=== PATIENT | male | born 1970 | race American Indian/Alaskan Native ===

== ENCOUNTER 2016-12-25 08:32 | Emergency (ER) | payer OTHER ==
[2016-12-25 09:30] LABS: Anion Gap 15 mmol/L; Blood Urea Nitrogen 12 mg/dL (9-20); Calcium 8.5 mg/dL (8.4-10.2); Carbon Dioxide 29 mmol/L (22-30); Glucose 123 mg/dL (75-100); Potassium 4.5 mmol/L (3.6-5.0); Sodium 140 mmol/L (137-145)
[2016-12-25 09:36] LABS: Basophils % (Auto) 0.5 % (0.0-1.8); Eosinophils % (Auto) 3.6 % (0.0-4.3); Hematocrit 44.7 % (35.5-45.6); Hemoglobin 14.8 gm/dl (11.8-15.2); Mean Corpuscular HGB Conc 33 % (32-34); Mean Corpuscular Hemoglobin 33 pg (28-32); Mean Corpuscular Volume 100 fl (84-94); Platelet Count 235 K/mm3 (140-440); Red Blood Count 4.47 M/mm3 (3.65-5.03); Red Cell Distribution Width 13.6 % (13.2-15.2); White Blood Count 7.7 K/mm3 (4.5-11.0)
--- NOTE | 2016-12-25 09:41 | XRay Report ---
Left knee 3 views: History: Knee pain, injury. Findings: Narrowing of the medial and patellofemoral compartment knee joint. Sclerotic adjacent articular surfaces with peripheral osteophytes suggesting degenerative changes. Degenerative changes also noted the lateral compartment. No fracture. No soft tissue calcification. Suspicion of fluid in the suprapatellar bursa. Impression: Degenerative changes. No acute fracture.
--- NOTE | 2016-12-25 09:42 | XRay Report ---
Left tibia fibula 2 views: History: Pain injury. Findings: No fracture, periosteal reaction or lytic lesion. Impression: No bony abnormality.
[2016-12-25 09:45] LABS: INR 1.09 (0.87-1.13)
[2016-12-25 09:47] LABS: Partial Thromboplastin Time 28.3 Sec. (24.2-36.6)
--- NOTE | 2016-12-25 10:30 | Emergency Department Report ---
ED General Adult HPI - General Chief complaint: Extremity Injury, Lower Stated complaint: SWOLLEN LEFT LEG Time Seen by Provider: 12/25/16 10:28 Source: patient, RN notes reviewed Mode of arrival: Ambulatory Limitations: No Limitations - History of Present Illness Initial comments: This is a 46-year-old male. He is previously unknown to me. His primary care doctor's Dr. Anderson. Past medical history includes obesity, DJD. The patient comes to the ER complaining of left lower extremity pain. He reports accidentally dropping an air conditioner on his left knee/distal lower extremity 2 weeks ago. He also reports that within the past few days, he is noted of pulsing feeling in his left lower extremity, and thinks his "veins" are swollen. There is no headache, neck pain, chest pain, abdominal pain or shortness of breath. There is no hematemesis or bright red blood per rectum, no history of intracranial hemorrhage. There is no weakness or numbness. There is no dorsal or plantar foot pain. He is able to ambulate with mild difficulty secondary to pain. no recent road trip greater than 4 hours, no recent surgeries, no recent hospital admissions, no personal history of DVT or pulmonary embolus that he is aware of. -: Gradual, week(s) Location: left, lower extremity Quality: aching Consistency: intermittent Improves with: movement, rest Associated Symptoms: denies other symptoms - Related Data Previous Rx's Medication Instructions Recorded Last Taken Type Ibuprofen [Motrin 800 MG tab] 800 mg PO Q8H #30 tablet 04/18/14 Unknown Rx oxyCODONE /ACETAMINOPHEN [Percocet 1 tab PO Q6HR PRN #12 tablet 04/18/14 Unknown Rx 5/325] Cyclobenzaprine HCl [Flexeril 5mg] 5 mg PO TID #30 tablet 12/02/14 Unknown Rx HYDROcodone/APAP 5-325 [[place] 1 each PO Q6HR PRN #20 tablet 12/02/14 Unknown Rx 5/325] Acetaminophen/Codeine [Tylenol 1 tab PO Q6H PRN #20 tab 12/25/16 Unknown Rx /Codeine # 3 tab] Apixaban [Eliquis] 5 mg PO BID #28 tablet 12/25/16 Unknown Rx Apixaban [Eliquis] 10 mg PO BID #14 tablet 07/14/17 Unknown Rx Allergies Allergy/AdvReac Type Severity Reaction Status Date / Time No Known Allergies Allergy Unverified 04/18/14 13:58 ED Review of Systems ROS: Stated complaint: SWOLLEN LEFT LEG Other details as noted in HPI Constitutional: denies: fever Eyes: denies: vision change ENT: denies: epistaxis Respiratory: denies: cough, shortness of breath Cardiovascular: denies: chest pain Gastrointestinal: denies: hematemesis, melena, hematochezia Musculoskeletal: arthralgia, myalgia Skin: rash Neurological: denies: as per HPI, weakness ED Past Medical Hx - Past Medical History Previous Medical History?: Yes Additional medical history: 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 - Surgical History Past Surgical History?: No - Social History Smoking Status: Never Smoker Substance Use Type: None - Medications Home Medications: Home Medications Medication Instructions Recorded Confirmed Last Taken Type Ibuprofen [Motrin 800 MG tab] 800 mg PO Q8H #30 tablet 04/18/14 Unknown Rx oxyCODONE /ACETAMINOPHEN [Percocet 1 tab PO Q6HR PRN #12 tablet 04/18/14 Unknown Rx 5/325] Cyclobenzaprine HCl [Flexeril 5mg] 5 mg PO TID #30 tablet 12/02/14 Unknown Rx HYDROcodone/APAP 5-325 [[place] 1 each PO Q6HR PRN #20 tablet 12/02/14 Unknown Rx 5/325] Acetaminophen/Codeine [Tylenol 1 tab PO Q6H PRN #20 tab 12/25/16 Unknown Rx /Codeine # 3 tab] Apixaban [Eliquis] 5 mg PO BID #28 tablet 12/25/16 Unknown Rx Apixaban [Eliquis] 10 mg PO BID #14 tablet 12/25/16 Unknown Rx ED Physical Exam - General Limitations: No Limitations General appearance: alert, in no apparent distress, obese - Head Head exam: Present: atraumatic, normocephalic - Eye Eye exam: Present: normal appearance, EOMI. Absent: nystagmus - ENT ENT exam: Present: normal exam, normal orophraynx, mucous membranes moist, normal external ear exam - Neck Neck exam: Present: normal inspection, full ROM. Absent: tenderness, meningismus - Respiratory Respiratory exam: Present: normal lung sounds bilaterally. Absent: respiratory distress, wheezes, rales, rhonchi, stridor, chest wall tenderness, accessory muscle use - Cardiovascular Cardiovascular Exam: Present: regular rate, normal rhythm, normal heart sounds. Absent: bradycardia, tachycardia, irregular rhythm, systolic murmur, diastolic murmur, rubs, gallop - GI/Abdominal GI/Abdominal exam: Present: soft, normal bowel sounds. Absent: distended, tenderness, guarding, rebound, rigid, pulsatile mass - Rectal Rectal exam: Present: deferred - Extremities Exam Extremities exam: Present: normal inspection, full ROM, normal capillary refill , calf tenderness, other (the bilateral lower extremities appear to have a mild component of lymphedema, although the patient is quite obese. There are 2+ pulses noted in the bilateral lower extremities. The compartments are soft. In the left lower extremity, the pelvis is stable, there is no long bony tenderness, and varicose veins are appreciated on the medial aspect of the left lower extremity.). Absent: tenderness, pedal edema, joint swelling - Back Exam Back exam: Present: normal inspection, full ROM. Absent: tenderness, CVA tenderness (R), CVA tenderness (L), muscle spasm, paraspinal tenderness, vertebral tenderness - Neurological Exam Neurological exam: Present: alert, oriented X3, normal gait (the patient walks with a very slight limp), other (Extraocular movements intact. Tongue midline. No facial droop. Facial sensation intact to light touch in the V1, V2, V3 distribution bilaterally. 5 and 5 strength in 4 extremities.. Sensation is intact to light touch in 4 extremities.). Absent: motor sensory deficit - Psychiatric Psychiatric exam: Present: normal affect, normal mood - Skin Skin exam: Present: warm, erythema. Absent: rash ED Course Vital Signs 12/25/16 12/25/16 08:43 11:35 Temperature 98.5 F Pulse Rate 79 78 Respiratory 20 20 Rate Blood Pressure 178/106 Blood Pressure 142/78 [Left] O2 Sat by Pulse 94 97 Oximetry ED Medical Decision Making - Lab Data Result diagrams: 12/25/16 09:03 12/25/16 09:03 Vital Signs 12/25/16 08:43 Temperature 98.5 F Pulse Rate 79 Respiratory 20 Rate Blood Pressure 178/106 O2 Sat by Pulse 94 Oximetry Lab Results 12/25/16 12/25/16 12/25/16 Range/Units 09:03 09:03 09:03 WBC 7.7 (4.5-11.0) K/mm3 RBC 4.47 (3.65-5.03) M/mm3 Hgb 14.8 (11.8-15.2) gm/dl Hct 44.7 (35.5-45.6) % MCV 100 H (84-94) fl MCH 33 H (28-32) pg MCHC 33 (32-34) % RDW 13.6 (13.2-15.2) % Plt Count 235 (140-440) K/mm3 Lymph % (Auto) 21.4 (13.4-35.0) % [place] % (Auto) 10.4 H (0.0-7.3) % Eos % (Auto) 3.6 (0.0-4.3) % Baso % (Auto) 0.5 (0.0-1.8) % Lymph # 1.6 (1.2-5.4) K/mm3 [place] # 0.8 (0.0-0.8) K/mm3 Eos # 0.3 (0.0-0.4) K/mm3 Baso # 0.0 (0.0-0.1) K/mm3 Seg Neutrophils % 64.1 (40.0-70.0) % Seg Neutrophils # 4.9 (1.8-7.7) K/mm3 PT 14.0 (12.2-14.9) Sec. INR 1.09 (0.87-1.13) APTT 28.3 (24.2-36.6) Sec. Sodium 140 (137-145) mmol/L Potassium 4.5 (3.6-5.0) mmol/L Chloride 101.0 (98-107) mmol/L Carbon Dioxide 29 (22-30) mmol/L Anion Gap 15 mmol/L BUN 12 (9-20) mg/dL Creatinine 1.0 (0.8-1.5) mg/dL Estimated GFR > 60 ml/min BUN/Creatinine Ratio 12.00 % Glucose 123 H (75-100) mg/dL Calcium 8.5 (8.4-10.2) mg/dL - Radiology Data Radiology results: report reviewed, image reviewed X-ray of the left knee is negative for fracture and dislocation. DJD is noted. X-ray of the tibia and fibula, left side, negative for fracture and dislocation. LIVE [facility] CATHERINE AGUILA JR Male : 1970 MedRec# [id number] 12/25/16 10:17 - Radiology Dept. Note by ZOFIA PRO [facility] Num: [id number] : 1970 Patient Age: 46 LLE VENOUS DUPLEX COMPLETED. VAS LAB PRELIMINARY REPORT;ACUTE SVT NOTED IN LT. GSV FROM [place]-FEM JUNC DOWN INTO PX/MD CALF. NO EVIDENCE OF DVT NOTED IN VESSELS/SEGMENTS EXAMINED. UNABLE TO IMAGE 3/4 THIGH SFV AND PX- CALF VESSELS DUE TO HABITUS/ SWELLING. PHYSICIANS REPORT TO FOLLOW...(RSK) Initialized on 12/25/16 10:17 - END OF NOTE - Medical Decision Making Differential diagnosis: Contusion, fracture, sprain, dislocation, deep venous thrombosis, superficial venous thrombosis Assessment and plan: 46-year-old male with mild blunt trauma 2 weeks ago, who is ambulatory, but superficial venous thrombosis that is abutting the deep system. He is afebrile, with reassuring vital signs, with no chest pain, shortness of breath. His compartments are soft. Case is discussed with the vascular surgery team power generation plant operator, Tommie Palacios, who has discussed the case with Dr. Liu, vascular surgery recommends follow-up with either outpatient hematology her primary care, and anticoagulation as per primary team. I have then discussed the case with the patient's primary care doctor, Dr. Anderson, who requested eliquis, and indicated he could see the patient on Wednesday as a follow-up. Extensive discussion had with the patient regarding the risks, benefits, alternatives of systemic anticoagulation, he denies contraindications to systemic anticoagulation, and understands that there is a small risk of severe hemorrhage/life-threatening bleeding. Through shared decision making, and given that vascular surgery recommends treatment of this SVT as a DVT, patient will be started on systemic anticoagulation, and he will be instructed to follow-up with his outpatient primary care doctor or sediment remediation consultant next week. Vascular surgery does not recommend repeat outpatient ultrasound. Critical care attestation.: If time is entered above; I have spent that time in minutes in the direct care of this critically ill patient, excluding procedure time. ED Disposition Clinical Impression: Left leg pain Disposition: DC-01 TO HOME OR SELFCARE Is pt being admited?: No Does the pt Need Aspirin: No Condition: Stable Instructions: Deep Venous Thrombosis (ED) Additional Instructions: Ultrasound of the left lower extremity demonstrated superficial venous thromboembolism/blood clot. This is very close to the deep system within the left leg, and will most likely become a deep venous thrombosis. DVTs are risks to break off and cause blood clots in the lung, which can be potentially dangerous and life threatening. Therefore, it is recommended to start the blood thinning medication as directed. Take blood thinner, eliquis, 10 mg twice daily for the next week, and then decreased to 5 mg twice daily. A three- week prescription has been given 2. Follow-up next week, within the next 3-5 days with either your primary care doctor or the listed child support specialist, Dr. Luna. Walk and weight bear as much as tolerated. Avoid consumption of alcohol, ibuprofen, Motrin, aspirin, Aleve, Naprosyn. Return to the ER right away with chest pain, shortness of breath, vomiting blood, defecating part, confusion, weakness, numbness, change in mental status. Prescriptions: Acetaminophen/Codeine [Tylenol /Codeine # 3 tab] 1 tab PO Q6H PRN #20 tab PRN Reason: Pain Apixaban [Eliquis] 10 mg PO BID #14 tablet Apixaban [Eliquis] 5 mg PO BID #28 tablet Referrals: PRIMARY CARE, [Primary Care Provider] - 3-5 Days FRANCIA ANDERSON MD [Staff Physician] - 3-5 Days JUAN CONTRERAS MD [Staff Physician] - 3-5 Days DENIS LUNA MD [Staff Physician] - 3-5 Days Forms: Work/School Release Form(ED)
[2016-12-25] MEDS ORDERED: TYLENOL #3 PO ONE (10:37)
[2016-12-25] MEDS ORDERED: LOVENOX SUB-Q STA (10:43)
[2016-12-25] MEDS ORDERED: ELIQUIS PO ONE (11:09)
[2016-12-25 11:35] VITALS: BP 142/78
--- NOTE | 2016-12-28 07:54 | Vascular Lab Report ---
Left Lower Extremity Venous Duplex Study: Reason for Exam: Pain and swelling of the left lower extremity. Comments on the Right: A limited duplex study was done of the proximal veins of the right lower extremity. All veins visualized are freely compressible without evidence of internal echogenicity. Flow is spontaneous and phasic throughout. No evidence of acute or chronic thrombus is seen in any of the vessels visualized. Comments on the Left: Superficial venous thrombophlebitis is visualized in the greater saphenous vein up to the saphenofemoral junction. No extension is noted into the common femoral vein. The remaining veins visualized are freely compressible without evidence of internal echogenicity. Spontaneous and phasic flow is present proximally. Impression: No evidence of acute or chronic deep venous thrombosis in the left lower extremity. Superficial thrombophlebitis is visualized in the greater saphenous vein up to the saphenofemoral junction. Clinical correlation recommended.
== END 2016-12-25 11:41 | disposition home or self-care (01) ==
LOC: ED 08:32
DX: M79.662 Pain in left lower leg (principal); W20.8XXA Other cause of strike by thrown, projected or falling object, initial encounter; Y93.89 Activity, other specified; Y99.8 Other external cause status; Y92.89 Other specified places as the place of occurrence of the external cause
CPT/HCPCS: 36415; 80048; 82550; 85025; 85610; 85730

== ENCOUNTER 2017-11-21 00:48 | Emergency (ER) | payer OTHER ==
[2017-11-21] MEDS ORDERED: NACL 0.9% 1000 ML 1,000 ML IV ONE (01:21)
[2017-11-21 01:57] LABS: Basophils % (Auto) 0.6 % (0.0-1.8); Eosinophils # (Auto) 0.2 K/mm3 (0.0-0.4); Eosinophils % (Auto) 3.8 % (0.0-4.3); Hematocrit 44.1 % (35.5-45.6); Hemoglobin 14.9 gm/dl (11.8-15.2); Lymphocytes # (Auto) 1.3 K/mm3 (1.2-5.4); Mean Corpuscular HGB Conc 34 % (32-34); Mean Corpuscular Hemoglobin 35 pg (28-32); Mean Corpuscular Volume 102 fl (84-94); Monocytes # (Auto) 0.5 K/mm3 (0.0-0.8); Monocytes % (Auto) 9.3 % (0.0-7.3); Platelet Count 194 K/mm3 (140-440); Red Blood Count 4.32 M/mm3 (3.65-5.03); Red Cell Distribution Width 13.9 % (13.2-15.2)
[2017-11-21 02:06] LABS: INR 1.03 (0.87-1.13)
[2017-11-21 02:25] LABS: Alanine Aminotransferase 16 units/L (7-56); BUN/Creatinine Ratio 11; Blood Urea Nitrogen 10 mg/dL (9-20); Calcium 9.1 mg/dL (8.4-10.2); Hemolysis Index 11; Lipase 16 units/L (13-60)
[2017-11-21 06:46] VITALS: BP 190/107
--- NOTE | 2017-11-21 07:32 | Emergency Department Report ---
ED GI Bleed HPI - General Chief complaint: GI Bleed Stated complaint: BLEEDING Time Seen by Provider: 11/21/17 07:11 Source: patient, RN notes reviewed, old records reviewed Mode of arrival: Ambulatory Limitations: No Limitations - History of Present Illness Initial comments: This is a 47-year-old male whom I have evaluated in the past. He presents to the ER today with a complaint of rectal bleeding. It started 2 days ago. It is painless. He describes bright red blood per rectum, and brown stool. He denies all other complaints. He is not taking blood thinners currently. No recent colonoscopy within the past 10 years. Symptoms are constant and did not have exacerbating or relieving factors. He endorses that he had to change underwear 5 times because he was bleeding so much. MD complaint: blood streaked stool, gross hematochezia -: Gradual, days(s) Severity scale (0 -10): 0 Quality: painless, burning Improves with: none Worsens with: none Associated Symptoms: denies: abdominal pain, nausea, vomiting, epistaxis, fever/ chills, headaches, loss of appetite, malaise, easy bruising, rash, other bleeding, shortness of breath, syncope, weakness Treatments Prior to Arrival: none - Related Data Previous Rx's Medication Instructions Recorded Last Taken Type Ibuprofen [Motrin 800 MG tab] 800 mg PO Q8H #30 tablet 04/18/14 Unknown Rx oxyCODONE /ACETAMINOPHEN [Percocet 1 tab PO Q6HR PRN #12 tablet 04/18/14 Unknown Rx 5/325] Cyclobenzaprine HCl [Flexeril 5mg] 5 mg PO TID #30 tablet 12/02/14 Unknown Rx HYDROcodone/APAP 5-325 [[place] 1 each PO Q6HR PRN #20 tablet 12/02/14 Unknown Rx 5/325] Acetaminophen/Codeine [Tylenol 1 tab PO Q6H PRN #20 tab 12/25/16 Unknown Rx /Codeine # 3 tab] Apixaban [Eliquis] 5 mg PO BID #28 tablet 12/25/16 Unknown Rx Apixaban [Eliquis] 10 mg PO BID #14 tablet 12/25/16 Unknown Rx Allergies Allergy/AdvReac Type Severity Reaction Status Date / Time No Known Allergies Allergy Unverified 04/18/14 13:58 ED Review of Systems ROS: Stated complaint: BLEEDING Other details as noted in HPI Comment: All other systems reviewed and negative Respiratory: denies: shortness of breath Cardiovascular: denies: chest pain Gastrointestinal: hematochezia. denies: abdominal pain ED Past Medical Hx - Past Medical History Previous Medical History?: Yes Additional medical history: 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 - Surgical History Past Surgical History?: No - Social History Smoking Status: Current Every Day Smoker Substance Use Type: Alcohol - Medications Home Medications: Home Medications Medication Instructions Recorded Confirmed Last Taken Type Ibuprofen [Motrin 800 MG tab] 800 mg PO Q8H #30 tablet 04/18/14 Unknown Rx oxyCODONE /ACETAMINOPHEN [Percocet 1 tab PO Q6HR PRN #12 tablet 04/18/14 Unknown Rx 5/325] Cyclobenzaprine HCl [Flexeril 5mg] 5 mg PO TID #30 tablet 12/02/14 Unknown Rx HYDROcodone/APAP 5-325 [[place] 1 each PO Q6HR PRN #20 tablet 12/02/14 Unknown Rx 5/325] Acetaminophen/Codeine [Tylenol 1 tab PO Q6H PRN #20 tab 12/25/16 Unknown Rx /Codeine # 3 tab] Apixaban [Eliquis] 5 mg PO BID #28 tablet 12/25/16 Unknown Rx Apixaban [Eliquis] 10 mg PO BID #14 tablet 12/25/16 Unknown Rx ED Physical Exam - General Limitations: No Limitations General appearance: alert, in no apparent distress - Head Head exam: Present: atraumatic, normocephalic - Eye Eye exam: Present: normal appearance, EOMI. Absent: nystagmus - ENT ENT exam: Present: normal exam, normal orophraynx, mucous membranes moist, normal external ear exam - Neck Neck exam: Present: normal inspection, full ROM - Respiratory Respiratory exam: Present: normal lung sounds bilaterally. Absent: respiratory distress - Cardiovascular Cardiovascular Exam: Present: regular rate, normal rhythm, normal heart sounds. Absent: bradycardia, tachycardia, irregular rhythm, systolic murmur, diastolic murmur, rubs, gallop - GI/Abdominal GI/Abdominal exam: Present: soft, normal bowel sounds. Absent: distended, tenderness, guarding, rebound, rigid, pulsatile mass - Rectal Rectal exam: Present: normal inspection, heme (+) stool, bloody stool, other ( escorted by nursing Maksimbang Amairani Ellis) - Extremities Exam Extremities exam: Present: normal inspection, full ROM, normal capillary refill , other (hyperpigmented skin noted. No redness, pus or streaking in the lower extremities). Absent: calf tenderness - Back Exam Back exam: Present: normal inspection, full ROM. Absent: tenderness, CVA tenderness (R), paraspinal tenderness, vertebral tenderness - Neurological Exam Neurological exam: Present: alert, oriented X3, CN II-XII intact, normal gait, other (Extraocular movements intact. Tongue midline. No facial droop. Facial sensation intact to light touch in the V1, V2, V3 distribution bilaterally. 5 and 5 strength in 4 extremities.. Sensation is intact to light touch in 4 extremities.). Absent: motor sensory deficit - Psychiatric Psychiatric exam: Present: normal affect, normal mood - Skin Skin exam: Present: warm ED Course Vital Signs 11/21/17 11/21/17 11/21/17 01:12 05:48 05:55 Temperature 98.8 F 98.1 F Pulse Rate 96 H 86 Respiratory 20 18 18 Rate Blood Pressure 194/92 Blood Pressure 190/107 [Left] O2 Sat by Pulse 89 98 97 Oximetry ED Medical Decision Making - Lab Data Result diagrams: 11/21/17 01:34 11/21/17 01:34 Vital Signs 11/21/17 11/21/17 11/21/17 01:12 05:48 05:55 Temperature 98.8 F 98.1 F Pulse Rate 96 H 86 Respiratory 20 18 18 Rate Blood Pressure 194/92 Blood Pressure 190/107 [Left] O2 Sat by Pulse 89 98 97 Oximetry Lab Results 11/21/17 11/21/17 11/21/17 Range/Units 01:34 01:34 01:34 WBC 5.7 (4.5-11.0) K/mm3 RBC 4.32 (3.65-5.03) M/mm3 Hgb 14.9 (11.8-15.2) gm/dl Hct 44.1 (35.5-45.6) % MCV 102 H (84-94) fl MCH 35 H (28-32) pg MCHC 34 (32-34) % RDW 13.9 (13.2-15.2) % Plt Count 194 (140-440) K/mm3 Lymph % (Auto) 23.0 (13.4-35.0) % [place] % (Auto) 9.3 H (0.0-7.3) % Eos % (Auto) 3.8 (0.0-4.3) % Baso % (Auto) 0.6 (0.0-1.8) % Lymph # 1.3 (1.2-5.4) K/mm3 [place] # 0.5 (0.0-0.8) K/mm3 Eos # 0.2 (0.0-0.4) K/mm3 Baso # 0.0 (0.0-0.1) K/mm3 Seg Neutrophils % 63.3 (40.0-70.0) % Seg Neutrophils # 3.6 (1.8-7.7) K/mm3 PT 14.0 (12.2-14.9) Sec. INR 1.03 (0.87-1.13) APTT 30.0 (24.2-36.6) Sec. Sodium 142 (137-145) mmol/L Potassium 4.5 (3.6-5.0) mmol/L Chloride 100.7 (98-107) mmol/L Carbon Dioxide 30 (22-30) mmol/L Anion Gap 16 mmol/L BUN 10 (9-20) mg/dL Creatinine 0.9 (0.8-1.5) mg/dL Estimated GFR > 60 ml/min BUN/Creatinine Ratio 11 % Glucose 125 H (75-100) mg/dL Calcium 9.1 (8.4-10.2) mg/dL Total Bilirubin 0.70 (0.1-1.2) mg/dL AST 16 (5-40) units/L ALT 16 (7-56) units/L Alkaline Phosphatase 50 (35-129) units/L Total Protein 6.7 (6.3-8.2) g/dL Albumin 4.0 (3.9-5) g/dL Albumin/Globulin Ratio 1.5 % Lipase 16 (13-60) units/L Blood Type Antibody Screen 11/21/17 Range/Units 01:36 WBC (4.5-11.0) K/mm3 RBC (3.65-5.03) M/mm3 Hgb (11.8-15.2) gm/dl Hct (35.5-45.6) % MCV (84-94) fl MCH (28-32) pg MCHC (32-34) % RDW (13.2-15.2) % Plt Count (140-440) K/mm3 Lymph % (Auto) (13.4-35.0) % [place] % (Auto) (0.0-7.3) % Eos % (Auto) (0.0-4.3) % Baso % (Auto) (0.0-1.8) % Lymph # (1.2-5.4) K/mm3 [place] # (0.0-0.8) K/mm3 Eos # (0.0-0.4) K/mm3 Baso # (0.0-0.1) K/mm3 Seg Neutrophils % (40.0-70.0) % Seg Neutrophils # (1.8-7.7) K/mm3 PT (12.2-14.9) Sec. INR (0.87-1.13) APTT (24.2-36.6) Sec. Sodium (137-145) mmol/L Potassium (3.6-5.0) mmol/L Chloride (98-107) mmol/L Carbon Dioxide (22-30) mmol/L Anion Gap mmol/L BUN (9-20) mg/dL Creatinine (0.8-1.5) mg/dL Estimated GFR ml/min BUN/Creatinine Ratio % Glucose (75-100) mg/dL Calcium (8.4-10.2) mg/dL Total Bilirubin (0.1-1.2) mg/dL AST (5-40) units/L ALT (7-56) units/L Alkaline Phosphatase (35-129) units/L Total Protein (6.3-8.2) g/dL Albumin (3.9-5) g/dL Albumin/Globulin Ratio % Lipase (13-60) units/L Blood Type O NEGATIVE Antibody Screen Negative - Medical Decision Making Differential diagnosis, including not limited to: Internal hemorrhoids, malignancy, anal fissure, angiodysplasia Assessment and plan: 47-year-old male with painless bright red blood per rectum. He is afebrile with reassuring vital signs, with the exception of incidental elevated blood pressure that is not symptomatically, and he is currently not on systemic anticoagulation. Admission was recommended to the hospital to further evaluate possible sources of lower GI bleeding. The patient declines admission and is going to sign out AGAINST MEDICAL ADVICE. The patient is alert and oriented 3, clinically sober, exhibits decision- making capacity. The risks of leaving including , disability, paralysis, loss of quality of life, cancer, tumor, malignancy were discussed with the patient, who verbalized understanding. This conversation is witnessed by nurse MYAH BONE The patient was counseled to follow up with the primary care doctor for his elevated blood pressure and instructed to return to the ER right away if and when he changes his mind, otherwise he is counseled to follow up as soon as possible with outpatient gastroenterology, which he indicates he will do. Return precautions were extensively reviewed. Critical care attestation.: If time is entered above; I have spent that time in minutes in the direct care of this critically ill patient, excluding procedure time. ED Disposition Clinical Impression: GI bleed Qualifiers: GI bleed type/associated pathology: unspecified gastrointestinal hemorrhage type Qualified Code(s): K92.2 - Gastrointestinal hemorrhage, unspecified Disposition: LEFT AGAINST MED ADVICE Is pt being admited?: No Does the pt Need Aspirin: No Condition: Undetermined Instructions: Rectal Bleeding (ED) Additional Instructions: As we discussed, patient has left the emergency room AGAINST MEDICAL ADVICE. My leaving, the patient risks , disability, paralysis, permanent loss of quality of life. Patient should follow up as soon as possible with either your primary care doctor or the listed gastroenterology specialist, or contact gastroenterology the following phone number to obtain expedited appointment: [phone] ([phone]) Avoid consumption aspirin, Motrin, ibuprofen, NSAIDs. The emergency room is up in 24 hours a day, 7 days a week. It never closes. Therefore, return to the ER right away if and when the patient changes his mind. Referrals: PRIMARY CARE, [Primary Care Provider] - 3-5 Days NADINE MG MD [Staff Physician] - 3-5 Days Forms: Accompanied Note
== END 2017-11-21 08:33 | disposition left against medical advice (07) ==
LOC: ED 00:48
DX: K92.2 Gastrointestinal hemorrhage, unspecified (principal); F17.200 Nicotine dependence, unspecified, uncomplicated
CPT/HCPCS: 36415; 80053; 82271; 83690; 85025; 85610; 85730; 86850; 86900; 86901; 93005; 93010; 99284

== ENCOUNTER 2018-10-24 13:02 | Emergency (ER) | payer SELFPAY ==
--- NOTE | 2018-10-24 15:06 | Ultrasound Report ---
ULTRASOUND TESTICULAR DOPPLER COMPLETE History: Testicular pain. Technique: Trans-scrotal ultrasound with spectral doppler interrogation. Findings: Slightly limited exam secondary to patient body habitus. The right testicle measures 3.4 x 2.3 x 2.9 cm. The left testicle measures 3.3 x 2.4 x 2.3 cm. No evidence for testicular mass, cyst or calcifications. The epididymides are partially imaged and appear unremarkable bilaterally. No evidence for epididymo-orchitis. Bilateral varicoceles are identified. No hydroceles are identified. Spectral Doppler waveforms demonstrate flow bilaterally, however, high resistance arterial waveforms are demonstrated bilaterally. There is loss of end-diastolic flow to the testes bilaterally. No large hernia containing bowel loops are identified. I question if bilateral fat containing hernias are present. IMPRESSION: The testes and epididymides are unremarkable. Bilateral varicoceles. Slightly abnormal spectral Doppler waveforms as described above. Bilateral fat containing hernias? No large hernia containing bowel loops is detected.
[2018-10-24] MEDS ORDERED: TORADOL IM ONE (16:47)
[2018-10-24] MEDS ORDERED: NORCO 5/325 PO ONE (16:47)
--- NOTE | 2018-10-24 16:48 | Emergency Department Report ---
ED Male HPI - General Chief complaint: Urogenital-Male Stated complaint: (R) TESTICLE ENLARGED Time Seen by Provider: 10/24/18 16:14 Source: patient Mode of arrival: Ambulatory Limitations: No Limitations - History of Present Illness Initial comments: 48-year-old morbidly obese male with past medical history of hypertension presents to Hospital with complaints of onset of right testicular pain while at work today. Patient states he initially lifted a TV from the ground. He walked so another John and bit down, when he stood back up yesterday onset of right scrotal pain and swelling. Patient denies nausea, vomiting, hematuria, dysuria, or fever. Denies previous history of abdominal surgeries or hernias. Pain is consistent intensity, constant, worse with movement and palpation. Patient has a history of hypertension but discontinued the medication has been taking herbal medication. - Related Data Previous Rx's Medication Instructions Recorded Last Taken Type Ibuprofen [Motrin 800 MG tab] 800 mg PO Q8H #30 tablet 04/18/14 Unknown Rx oxyCODONE /ACETAMINOPHEN [Percocet 1 tab PO Q6HR PRN #12 tablet 04/18/14 Unknown Rx 5/325] Cyclobenzaprine HCl [Flexeril 5mg] 5 mg PO TID #30 tablet 12/02/14 Unknown Rx Acetaminophen/Codeine [Tylenol 1 tab PO Q6H PRN #20 tab 12/25/16 Unknown Rx /Codeine # 3 tab] Apixaban [Eliquis] 5 mg PO BID #28 tablet 12/25/16 Unknown Rx Apixaban [Eliquis] 10 mg PO BID #14 tablet 12/25/16 Unknown Rx Docusate Sodium [Colace] 100 mg PO BID PRN #20 capsule 10/24/18 Unknown Rx HYDROcodone/APAP 5-325 [Correll 1 each PO Q6HR PRN #15 tablet 10/24/18 Unknown Rx 5-325 mg TAB] Sulfamethoxazole/Trimethoprim 1 each PO BID #14 tablet 10/24/18 Unknown Rx [Bactrim DS TAB] amLODIPine [Norvasc] 10 mg PO DAILY #30 tab 10/24/18 Unknown Rx Allergies Allergy/AdvReac Type Severity Reaction Status Date / Time No Known Allergies Allergy Unverified 04/18/14 13:58 ED Review of Systems ROS: Stated complaint: (R) TESTICLE ENLARGED Other details as noted in HPI Comment: All other systems reviewed and negative ED Past Medical Hx - Past Medical History Previous Medical History?: Yes Additional medical history: 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 - Surgical History Past Surgical History?: No - Social History Smoking Status: Current Every Day Smoker Substance Use Type: None - Medications Home Medications: Home Medications Medication Instructions Recorded Confirmed Last Taken Type Ibuprofen [Motrin 800 MG tab] 800 mg PO Q8H #30 tablet 04/18/14 Unknown Rx oxyCODONE /ACETAMINOPHEN [Percocet 1 tab PO Q6HR PRN #12 tablet 04/18/14 Unknown Rx 5/325] Cyclobenzaprine HCl [Flexeril 5mg] 5 mg PO TID #30 tablet 12/02/14 Unknown Rx Acetaminophen/Codeine [Tylenol 1 tab PO Q6H PRN #20 tab 12/25/16 Unknown Rx /Codeine # 3 tab] Apixaban [Eliquis] 5 mg PO BID #28 tablet 12/25/16 Unknown Rx Apixaban [Eliquis] 10 mg PO BID #14 tablet 12/25/16 Unknown Rx Docusate Sodium [Colace] 100 mg PO BID PRN #20 capsule 10/24/18 Unknown Rx HYDROcodone/APAP 5-325 [Correll 1 each PO Q6HR PRN #15 tablet 10/24/18 Unknown Rx 5-325 mg TAB] Sulfamethoxazole/Trimethoprim 1 each PO BID #14 tablet 10/24/18 Unknown Rx [Bactrim DS TAB] amLODIPine [Norvasc] 10 mg PO DAILY #30 tab 10/24/18 Unknown Rx ED Physical Exam - General Limitations: No Limitations - Other Other exam information: General: No limitations, patient is alert in no acute distress Head exam: Atraumatic, normocephalic Eyes exam: Normal appearance, pupils equal reactive to light, extraocular movements intact ENT: Moist mucous membrane, normal oropharynx Neck exam: Normal inspection, full range of motion, no meningismus nontender Respiratory exam: Clear to auscultation bilateral, no wheezes, rales, crackles Cardiovascular: Normal rate and rhythm, normal heart sounds Abdomen: Soft, nondistended, lower abdominal wall edema, and nontender, with normal bowel sounds, no rebound, or guarding. Right pubic area tenderness : Right scrotal wall edema with tenderness to palpation. No warmth or erythema, no penile lesions, no warmth or erythema. Extremity: Full range of motion, significant bilateral lower extremity pitting edema. Back: Normal Inspection, full range of motion, no tenderness Neurologic: Alert, oriented x3, cranial nerves intact, no motor or sensory deficit Psychiatric: normal affect, normal mood Skin: Warm, dry, intact ED Course Vital Signs 10/24/18 10/24/18 10/24/18 13:12 16:20 18:34 Temperature 98.3 F 97.8 F Pulse Rate 71 91 H 88 Respiratory 20 20 20 Rate Blood Pressure 163/112 Blood Pressure 180/130 170/113 [Left] O2 Sat by Pulse 95 95 94 Oximetry 10/24/18 18:39 Temperature Pulse Rate 88 Respiratory Rate Blood Pressure 170/113 Blood Pressure [Left] O2 Sat by Pulse Oximetry - Consultations Consultation #1: 10/24/18 18:59 case w/w Dr harris, can evaluate pt in office Consultation #2: 10/24/18 19:13 case d/w Urolgist Dr Greenfield. Pt will f/u. ED Medical Decision Making - Lab Data Result diagrams: 10/24/18 16:51 10/24/18 16:51 Lab Results 10/24/18 10/24/18 10/24/18 Range/Units 16:51 16:51 17:07 WBC 3.9 L (4.5-11.0) K/mm3 RBC 4.15 (3.65-5.03) M/mm3 Hgb 14.2 (11.8-15.2) gm/dl Hct 42.7 (35.5-45.6) % MCV 103 H (84-94) fl MCH 34 H (28-32) pg MCHC 33 (32-34) % RDW 15.3 H (13.2-15.2) % Plt Count 197 (140-440) K/mm3 [place] % (Auto) Ring Conductor Add Manual Diff Complete Total Counted 100 Seg Neuts % (Manual) 60.0 (40.0-70.0) % Band Neutrophils % 0 % Lymphocytes % (Manual) 33.0 (13.4-35.0) % Reactive Lymphs % (Man) 0 % Monocytes % (Manual) 6.0 (0.0-7.3) % Eosinophils % (Manual) 1.0 (0.0-4.3) % Basophils % (Manual) 0 (0.0-1.8) % Metamyelocytes % 0 % Myelocytes % 0 % Promyelocytes % 0 % Blast Cells % 0 % Nucleated RBC % Not Reportable Seg Neutrophils # Man 2.3 (1.8-7.7) K/mm3 Band Neutrophils # 0.0 K/mm3 Lymphocytes # (Manual) 1.3 (1.2-5.4) K/mm3 Abs React Lymphs (Man) 0.0 K/mm3 Monocytes # (Manual) 0.2 (0.0-0.8) K/mm3 Eosinophils # (Manual) 0.0 (0.0-0.4) K/mm3 Basophils # (Manual) 0.0 (0.0-0.1) K/mm3 Metamyelocytes # 0.0 K/mm3 Myelocytes # 0.0 K/mm3 Promyelocytes # 0.0 K/mm3 Blast Cells # 0.0 K/mm3 WBC Morphology Not Reportable Hypersegmented Neuts Not Reportable Hyposegmented Neuts Not Reportable Hypogranular Neuts Not Reportable Smudge Cells Not Reportable Toxic Granulation Not Reportable Toxic Vacuolation Not Reportable Dohle Bodies Not Reportable Pelger-Huet Anomaly Not Reportable Venita Rods Not Reportable Platelet Estimate Consistent w auto Clumped Platelets Not Reportable Plt Clumps, EDTA Not Reportable Large Platelets Few Giant Platelets Not Reportable Platelet Satelliting Not Reportable Plt Morphology Comment Not Reportable RBC Morphology Not Reportable Dimorphic RBCs Not Reportable Polychromasia Not Reportable Hypochromasia Not Reportable Poikilocytosis 1+ Anisocytosis 1+ Microcytosis Not Reportable Macrocytosis Few Spherocytes Not Reportable Pappenheimer Bodies Not Reportable Sickle Cells Not Reportable Target Cells Not Reportable Tear Drop Cells Not Reportable Ovalocytes Not Reportable Helmet Cells Not Reportable Christians[place]-Clark[place] Bodies Not Reportable Solomons Rings Not Reportable Abby Cells Not Reportable Bite Cells Not Reportable Crenated Cell Not Reportable Elliptocytes Not Reportable Acanthocytes (Spur) Not Reportable Rouleaux Not Reportable Hemoglobin C Crystals Not Reportable Schistocytes Not Reportable Malaria parasites Not Reportable Capo Bodies Not Reportable Hem Pathologist Commnt No Sodium 139 (137-145) mmol/L Potassium 4.3 (3.6-5.0) mmol/L Chloride 100.5 (98-107) mmol/L Carbon Dioxide 27 (22-30) mmol/L Anion Gap 16 mmol/L BUN 10 (9-20) mg/dL Creatinine 0.9 (0.8-1.5) mg/dL Estimated GFR > 60 ml/min BUN/Creatinine Ratio 11 % Glucose 92 (75-100) mg/dL Calcium 8.9 (8.4-10.2) mg/dL Urine Color Анна (Yellow) Urine Turbidity Slightly-cloudy (Clear) Urine pH 5.0 (5.0-7.0) Ur Specific [place] 1.027 (1.003-1.030) Urine Protein >500 (Negative) mg/dL Urine Glucose (UA) Neg (Negative) mg/dL Urine Ketones Neg (Negative) mg/dL Urine Blood Sm (Negative) Urine Nitrite Neg (Negative) Urine Bilirubin Neg (Negative) Urine Urobilinogen 4.0 (<2.0) mg/dL Ur Leukocyte Esterase Sm (Negative) Urine WBC (Auto) 67.0 H (0.0-6.0) /HPF Urine RBC (Auto) 7.0 (0.0-6.0) /HPF U Epithel Cells (Auto) 2.0 (0-13.0) /HPF Hyaline Casts 3 /LPF Urine Mucus 3+ /HPF - Radiology Data Radiology results: report reviewed ULTRASOUND TESTICULAR DOPPLER COMPLETE History: Testicular pain. Technique: Trans-scrotal ultrasound with spectral doppler interrogation. Findings: Slightly limited exam secondary to patient body habitus. The right testicle measures 3.4 x 2.3 x 2.9 cm. The left testicle measures 3.3 x 2.4 x 2.3 cm. No evidence for testicular mass, cyst or calcifications. The epididymides are partially imaged and appear unremarkable bilaterally. No evidence for epididymo-orchitis. Bilateral varicoceles are identified. No hydroceles are identified. Spectral Doppler waveforms demonstrate flow bilaterally, however, high resistance arterial waveforms are demonstrated bilaterally. There is loss of end-diastolic flow to the testes bilaterally. No large hernia containing bowel loops are identified. I question if bilateral fat containing hernias are present. IMPRESSION: The testes and epididymides are unremarkable. Bilateral varicoceles. Slightly abnormal spectral Doppler waveforms as described above. Bilateral fat containing hernias? No large hernia containing bowel loops is detected. - Medical Decision Making Case was discussed with holter technician regarding results. They states that du ring which a sample form is Dr. Valle was in the room to interpreted the images. Bowel loops were not detected in the inguinal area. As per report of the testes and epididymis is or normal, bilateral hydroceles, and slightly abnormal spectral Doppler waveforms. Bilateral fat-containing hernias are suspected. Patient's pain improved at the Correll. Blood pressure remains elevated. Clonidine 0.1 mg provided. Labs are unremarkable UA suggestive of infection. Bactrim provided Unable to perform CT since patient exceeds the weight limit for the machine bp improved after clonidine, bp meds will be prescribed outpt f/u with urology and surgery - Differential Diagnosis hernia, cellulitis, torsion Critical Care Time: No Critical care attestation.: If time is entered above; I have spent that time in minutes in the direct care of this critically ill patient, excluding procedure time. ED Disposition Clinical Impression: Hypertension, Morbid obesity, UTI (urinary tract infection), Scrotal pain, Inguinal hernia Disposition: TO HOME OR SELFCARE Is pt being admited?: No Does the pt Need Aspirin: No Condition: Stable Instructions: Hypertension (ED), Urinary Tract Infection in Men (ED), Inguinal Hernia (ED), Testicle Pain (ED) Additional Instructions: Take the medication as prescribed. Follow up with your doctor or the clinic/doctor provided. Return if symptoms worsen as indicated by your discharge instructions Prescriptions: Sulfamethoxazole/Trimethoprim [Bactrim DS TAB] 1 each PO BID #14 tablet Docusate Sodium [Colace] 100 mg PO BID PRN #20 capsule PRN Reason: Constipation HYDROcodone/APAP 5-325 [Correll 5-325 mg TAB] 1 each PO Q6HR PRN #15 tablet PRN Reason: Pain amLODIPine [Norvasc] 10 mg PO DAILY #30 tab [facility] Care Provider] - 3-5 Days ORTIZ HARRIS MD [Staff Physician] - 2-3 Days (general surgeon) YANA GREENFIELD MD [Staff Physician] - 2-3 Days (urologist) Forms: Work/School Release Form(ED) Time of Disposition: 20:09
[2018-10-24 17:09] LABS: Hematocrit 42.7 % (35.5-45.6); Hemoglobin 14.2 gm/dl (11.8-15.2); Mean Corpuscular HGB Conc 33 % (32-34); Mean Corpuscular Volume 103 fl (84-94); Platelet Count 197 K/mm3 (140-440); Red Blood Count 4.15 M/mm3 (3.65-5.03); Red Cell Distribution Width 15.3 % (13.2-15.2)
[2018-10-24 17:38] LABS: BUN/Creatinine Ratio 11; Blood Urea Nitrogen 10 mg/dL (9-20); Calcium 8.9 mg/dL (8.4-10.2); Hemolysis Index 31
[2018-10-24 17:47] LABS: Bilirubin,Urine NEG (Negative); Blood,Urine SM (Negative); Color,Urine Amber (Yellow); Hyaline Casts,Urine 3 /LPF; Mucus,Urine 3+ /HPF
[2018-10-24 17:48] LABS: Protein,Urine >500 mg/dL (Negative)
[2018-10-24] MEDS ORDERED: BACTRIM DS PO ONE (17:54)
[2018-10-24 18:02] LABS: Basophils % (Manual) 0 % (0.0-1.8); Platelet Estimate Consistent w Auto; Total Cells Counted 100
[2018-10-24 18:03] LABS: Anisocytosis 1+; Large Platelets Few; Macrocytosis Few; Poikilocytosis 1+
[2018-10-24] MEDS ORDERED: CATAPRES PO ONE (18:35)
[2018-10-24] MEDS ORDERED: CATAPRES ONE (18:39)
[2018-10-24 19:31] VITALS: BP 168/94
== END 2018-10-24 20:30 | disposition home or self-care (01) ==
LOC: ED 13:02
DX: K40.90 Unilateral inguinal hernia, without obstruction or gangrene, not specified as recurrent (principal); N39.0 Urinary tract infection, site not specified; N50.82 Scrotal pain; I10 Essential (primary) hypertension; F17.200 Nicotine dependence, unspecified, uncomplicated; Z79.899 Other long term (current) drug therapy; E66.01 Morbid (severe) obesity due to excess calories; Z68.44 Body mass index [BMI] 60.0-69.9, adult
CPT/HCPCS: 36415; 80048; 81001; 85007; 85025; 93975; 96372; 99284; J1885